=== PATIENT | female | born 1970 ===

== ENCOUNTER 2018-05-03 07:14 | Outpatient (CLI) | payer SELFPAY | END 2018-05-03 07:15 | disposition home or self-care (01) | LOC: C.LAB 07:14 ==

== ENCOUNTER 2018-05-11 10:42 | Outpatient (CLI) | payer SELFPAY | END 2018-05-11 10:43 | disposition home or self-care (01) | LOC: C.MRIC 10:42 | DX: M54.5 Low back pain (principal) ==